=== PATIENT | female | born 1995 | race Caucasian/White ===

== ENCOUNTER 2017-08-27 13:47 | Emergency (ER) | payer OTHER ==
--- NOTE | 2017-08-27 15:30 | UC ---
Throat Pain/Nasal Vasu HPI - HPI Summary HPI Summary: 22 yo female with severe/ sinus pressure and pain x 3 days no f/c facial pressure nasal congestion - History of Current Complaint Chief Complaint: UCGeneralIllness Stated Complaint: SINUS Time Seen by Provider: 08/27/17 15:07 Hx Obtained From: Patient Hx Last Menstrual Period: 08/21/17 Onset/Duration: Gradual Onset, Lasting Days Severity: Moderate Pain Intensity: 3 Pain Scale Used: 0-10 Numeric Associated Signs & Symptoms: Positive: Sinus Discomfort Related History: Prior ENT Surgery - PETs - Epiglottits Risk Factors Epiglottis Risk Factors: Negative - Allergies/Home Medications Allergies/Adverse Reactions: Allergies Allergy/AdvReac Type Severity Reaction Status Date / Time No Known Allergies Allergy Verified 08/27/17 15:07 Home Medications: Home Medications Amoxicillin PO (*) [Amoxicillin 400 MG/5 ML SUSP*] 10 ml PO BID 08/27/17 [ History Confirmed 08/27/17] Ibuprofen TAB* [Advil TAB*] 600 mg PO Q6H PRN 08/27/17 [History Confirmed ] PMH/Surg Hx/FS Hx/Imm Hx Previously Healthy: Yes - Surgical History Surgical History: Yes Surgery Procedure, Year, and Place: RIGHT EAR TUBES X 4-5 TIMES - Family History Known Family History: Positive: Hypertension - Social History Alcohol Use: Occasionally Substance Use Type: None Smoking Status (MU): Never Smoked Tobacco Review of Systems Constitutional: Negative Skin: Negative Eyes: Negative ENT: Nasal Discharge, Sinus Congestion, Sinus Pain/Tenderness Respiratory: Negative Cardiovascular: Negative Gastrointestinal: Negative Genitourinary: Negative Motor: Negative Neurovascular: Negative Musculoskeletal: Negative Neurological: Negative Psychological: Negative Is Patient Immunocompromised?: No All Other Systems Reviewed And Are Negative: Yes Physical Exam Triage Information Reviewed: Yes Appearance: Well-Appearing, No Pain Distress, Well-Nourished Vital Signs: Initial Vital Signs Temp 98 F 08/27/17 15:09 Pulse 77 08/27/17 15:09 Resp 20 08/27/17 15:09 BP 108/67 08/27/17 15:09 Pulse Ox 96 08/27/17 15:09 Eye Exam: Normal ENT: Positive: Hearing grossly normal, Nasal congestion, TMs normal - PET in Right EAC. Negative: Tonsillar swelling, Tonsillar exudate Neck: Positive: Supple, Nontender, No Lymphadenopathy Respiratory: Positive: Lungs clear, Normal breath sounds, No respiratory distress Cardiovascular: Positive: RRR, No Murmur Musculoskeletal: Positive: ROM Intact, No Edema Neurological Exam: Normal Neurological: Positive: Alert Psychological Exam: Normal Skin Exam: Normal Throat Pain/Nasal Course/Dx - Differential Dx/Diagnosis Provider Diagnoses: acute sinusitis Discharge - Sign-Out/Discharge Documenting (check all that apply): Discharge - Discharge Plan Condition: Stable Disposition: HOME Prescriptions: Amoxicillin PO (*) [Amoxicillin 400 MG/5 ML SUSP*] 800 mg PO BID #200 bottle Patient Education Materials: Sinusitis (ED) Referrals: Anastasiia Hill PA [Primary Care Provider] - 5 Days (if not better) - Billing Disposition and Condition Condition: STABLE Disposition: HOME
== END 2017-08-27 15:38 | disposition home or self-care (01) ==
LOC: UCCORT 13:47
DX: J01.90 Acute sinusitis, unspecified (principal)
CPT/HCPCS: 99202; G0463